=== PATIENT | male | born 1945 | race Caucasian/White ===

== ENCOUNTER 2021-05-07 20:47 | Emergency (ER) | payer OTHER ==
[2021-05-07 21:02] VITALS: TEMP 98.2; BMI 29.5
[2021-05-07 22:11] VITALS: BP 117/73; PULSE 77
== END 2021-05-07 22:22 | disposition short-term general hospital (02) ==
LOC: JER 20:47
PROC: 3E033GC Introduction of Other Therapeutic Substance into Peripheral Vein, Percutaneous Approach (ICD-10-PCS; principal; 2021-05-07)
DX: I21.3 ST elevation (STEMI) myocardial infarction of unspecified site (principal)
CPT/HCPCS: 36415; 71045-TC-FY; 80053; 82550; 83735; 84100; 84484; 85025; 85610; 85730; 93005; 93010; 99291; C9803; J1644; U0003; U0005

== ENCOUNTER 2022-11-26 06:54 | Day surgery (SDC) | payer OTHER ==
[2022-11-21 12:05] VITALS: BMI 28.5
[2022-11-26] MEDS: CELECOXIB 200 MG CAPSULE PO ONE ×2 (08:00→17:23)
[2022-11-26] MEDS ORDERED: VANCOMYCIN 1,000 MG VIAL (RESTRICTED TO ID ONLY) ONE (08:48)
[2022-11-26] MEDS ORDERED: ceFAZolin SODIUM 1 GM VIAL ONE ×2 (08:48→10:19)
[2022-11-26] MEDS ORDERED: CEFAZOLIN 2 GM in DEXTROSE 5%-WATER - 50 ML IVPB ONE (09:00)
[2022-11-26] MEDS ORDERED: BUPIVACAINE LIPOSOME/PF (EXPAREL) 266 MG/20 ML VIAL ONE (09:00)
[2022-11-26] MEDS ORDERED: FENTANYL CITRATE/PF 50 MCG/ML VIAL ONE (09:00)
[2022-11-26] MEDS ORDERED: BUPIVACAINE HCL/PF 0.5% (5MG/ML) 10 ML VIAL ONE (09:01)
[2022-11-26] MEDS ORDERED: MIDAZOLAM HCL 2 MG/2 ML SINGLE DOSE VIAL ONE (09:01)
[2022-11-26] MEDS ORDERED: ACETAMINOPHEN 1000 MG/100 ML BAG IVPB ONE (09:55)
[2022-11-26] MEDS ORDERED: ONDANSETRON 4 MG/2 ML VIAL IVPUSH PRN (09:55)
[2022-11-26] MEDS ORDERED: TRANEXAMIC ACID 1000 MG/10 ML VIAL IVPUSH ONE (10:00)
[2022-11-26] MEDS ORDERED: LACTATED RINGERS SOLUTION 1,000 ML IV SCH (10:15)
[2022-11-26] MEDS ORDERED: DEXAMETHASONE SOD PHOSPHATE 4 MG/1 ML VIAL ONE (10:19)
[2022-11-26] MEDS ORDERED: ONDANSETRON 4 MG/2 ML VIAL ONE (10:19)
[2022-11-26] MEDS ORDERED: SUCCINYLCHOLINE CHLORIDE 200 MG/10 ML SYRINGE ONE (10:23)
[2022-11-26] MEDS ORDERED: PROPOFOL 20 ML ONE (10:23)
[2022-11-26] MEDS ORDERED: PHENYLEPHRINE HCL 10 MG/1 ML SINGLE DOSE VIAL ONE (10:29)
[2022-11-26] MEDS ORDERED: VANCOMYCIN 1,000 MG VIAL (RESTRICTED TO ID ONLY) IVPB ONE (11:45)
[2022-11-26] MEDS ORDERED: ACETAMINOPHEN INJECTION 100 ML IVPB ONE (12:33)
[2022-11-26] MEDS ORDERED: KETOROLAC TROMETHAMINE 30 MG/1 ML VIAL ONE (13:32)
[2022-11-26] MEDS: KETOROLAC TROMETHAMINE 30 MG/1 ML VIAL IVPUSH SCH ×3 (17:25→17:50)
[2022-11-26] MEDS: oxyCODONE HCL 10 MG SUSTAINED ACTING TABLET PO SCH ×2 (17:25→22:18)
[2022-11-26] MEDS: CEFAZOLIN SODIUM 2 GM in DEXTROSE 5%-WATER - 50 ML IVPB SCH (17:48)
[2022-11-26] MEDS: ACETAMINOPHEN 500 MG TABLET (FP) PO SCH (17:48)
[2022-11-26] MEDS: SENNOSIDES/DOCUSATE COMBO (SENNA PLUS) TABLET (UD) PO SCH (22:19)
[2022-11-26] MEDS: ATORVASTATIN CA 80 MG TABLET (FP) PO SCH (22:19)
[2022-11-27] MEDS: ACETAMINOPHEN 500 MG TABLET (FP) PO SCH ×4 (00:41→18:35)
[2022-11-27] MEDS: CEFAZOLIN SODIUM 2 GM in DEXTROSE 5%-WATER - 50 ML IVPB SCH (01:45)
[2022-11-27] MEDS: LEVOTHYROXINE NA 75 MCG TABLET (FP) PO SCH (06:24)
[2022-11-27] MEDS: oxyCODONE HCL 5 MG TABLET PO PRN ×3 (06:25→18:35)
[2022-11-27 08:39] LABS: HEMATOCRIT 26.5 % (35.4-49); HEMOGLOBIN 8.7 G/dL (11.7-16.9); MCH 29.5 pg (25.7-33.7); MCHC 32.9 g/dl (32.0-35.9); MEAN CELL VOLUME 89.4 fl (80-96); MEAN PLT VOLUME 8.9 fl (7.5-11.1); PLATELET COUNT 186.2 10^3/uL (134-434); RBC 2.96 10^6/uL (4.00-5.60); RDW 15.1 % (11.9-15.9); WHITE BLOOD COUNT 11.5 10^3/uL (4.0-10.8)
[2022-11-27] MEDS: SPIRONOLACTONE 25 MG TABLET PO SCH (09:04)
[2022-11-27] MEDS: ASPIRIN 81 MG CHEWABLE TABLETS PO SCH (09:04)
[2022-11-27] MEDS: PANTOPRAZOLE 40 MG TABLET PO SCH (09:05)
[2022-11-27] MEDS: TICAGRELOR 90 MG TABLET PO SCH (09:05)
[2022-11-27] MEDS: oxyCODONE HCL 10 MG SUSTAINED ACTING TABLET PO SCH ×2 (09:05→21:22)
[2022-11-27] MEDS: MULTIVITAMINS (DAILY MVI) TABLET (FP) PO SCH (09:06)
[2022-11-27] MEDS: SENNOSIDES/DOCUSATE COMBO (SENNA PLUS) TABLET (UD) PO SCH ×2 (09:07→21:23)
[2022-11-27] MEDS ORDERED: SACUBITRIL/VALSARTAN 24 MG-26 MG TABLET PO SCH ×4 (10:00→22:00)
[2022-11-27] MEDS: ATORVASTATIN CA 80 MG TABLET (FP) PO SCH (21:23)
[2022-11-27 22:07] VITALS: RESP 18
[2022-11-28] MEDS: ACETAMINOPHEN 500 MG TABLET (FP) PO SCH ×3 (01:45→12:18)
[2022-11-28] MEDS: oxyCODONE HCL 5 MG TABLET PO PRN (06:17)
[2022-11-28] MEDS: LEVOTHYROXINE NA 75 MCG TABLET (FP) PO SCH (06:17)
[2022-11-28 08:44] LABS: HEMATOCRIT 25.3 % (35.4-49); HEMOGLOBIN 8.6 G/dL (11.7-16.9); MCH 30.4 pg (25.7-33.7); MEAN CELL VOLUME 89.3 fl (80-96); RBC 2.83 10^6/uL (4.00-5.60)
[2022-11-28 08:45] LABS: MEAN PLT VOLUME 8.8 fl (7.5-11.1); PLATELET COUNT 176.1 10^3/uL (134-434); RDW 15.2 % (11.9-15.9)
[2022-11-28 09:08] LABS: ALBUMIN 3.1 g/dl (3.4-5.0); BILIRUBIN,TOTAL 0.4 mg/dl (0.2-1); BLOOD UREA NITROGEN 31.9 mg/dl (7-18); CALCIUM 8.7 mg/dl (8.5-10.1); MAGNESIUM 1.8 mg/dL (1.8-2.4); SGOT/AST 21.1 U/L (15-37); SGPT/ALT 16.1 U/L (7-52); TOT PROT 5.3 g/dl (6.4-8.2)
[2022-11-28] MEDS: PANTOPRAZOLE 40 MG TABLET PO SCH (09:30)
[2022-11-28] MEDS: MULTIVITAMINS (DAILY MVI) TABLET (FP) PO SCH (09:30)
[2022-11-28] MEDS: ASPIRIN 81 MG CHEWABLE TABLETS PO SCH (09:30)
[2022-11-28] MEDS: oxyCODONE HCL 10 MG SUSTAINED ACTING TABLET PO SCH (09:30)
[2022-11-28] MEDS: SENNOSIDES/DOCUSATE COMBO (SENNA PLUS) TABLET (UD) PO SCH (09:31)
[2022-11-28] MEDS: TICAGRELOR 90 MG TABLET PO SCH (09:31)
[2022-11-28] MEDS: SPIRONOLACTONE 25 MG TABLET PO SCH ×2 (09:50→09:51)
[2022-11-28] MEDS ORDERED: SACUBITRIL/VALSARTAN 24 MG-26 MG TABLET PO SCH (10:00)
[2022-11-28 14:16] VITALS: BP 101/68; PULSE 64; TEMP 97.9
== END 2022-11-28 14:30 | disposition home health service (06) ==
LOC: FASUSAT 06:54 → EDSTATUS 08:00 → FM/S 14:17 → FASUSAT 11-28 14:30
PROVIDERS: ATTEND Orthopaedic Surgery
PROC: 8E0Y0CZ Robotic Assisted Procedure of Lower Extremity, Open Approach (ICD-10-PCS; 2022-11-26)
PROC: 0SRC0J9 Replacement of Right Knee Joint with Synthetic Substitute, Cemented, Open Approach (ICD-10-PCS; principal; 2022-11-26 10:28)
DX: M17.11 Unilateral primary osteoarthritis, right knee (principal); I11.0 Hypertensive heart disease with heart failure; I50.9 Heart failure, unspecified; E03.9 Hypothyroidism, unspecified
CPT/HCPCS: 20985; 27447; C1776; S2900; 36415; 73560-TC-RT-FY; 80053; 83735; 85027; 94760; 97010-GP; 97116-GP; 97162-GP; C1713; C1769; C1889

== ENCOUNTER → 2023-12-02 | Day surgery (SDC) | payer OTHER | END | disposition home or self-care (01) | LOC: JRADIR 10:58 | PROVIDERS: ATTEND Family Medicine | PROC: 07D23ZX Extraction of Left Neck Lymphatic, Percutaneous Approach, Diagnostic (ICD-10-PCS; principal; 2023-12-02) | DX: C76.0 Malignant neoplasm of head, face and neck (principal) | CPT/HCPCS: 38505; 76942-TC; 76998-TC; 87899; 88305-TC; 88341-TC; 88342-TC ==

== ENCOUNTER 2024-03-03 03:46 | Inpatient (IN) | payer OTHER ==
[2024-03-03] MEDS ORDERED: PROPOFOL 20 ML ONE ×2 (10:16→11:13)
[2024-03-03] MEDS ORDERED: MIDAZOLAM HCL 2 MG/2 ML SINGLE DOSE VIAL ONE (10:17)
[2024-03-03] MEDS ORDERED: SUCCINYLCHOLINE CHLORIDE 200 MG/10 ML SYRINGE ONE (10:17)
[2024-03-03] MEDS ORDERED: BUPIVACAINE HCL/PF 0.5% (5MG/ML) 10 ML VIAL ONE (10:24)
[2024-03-03] MEDS ORDERED: LIDOCAINE 1%/EPI 1:100000 (20 ML MULTI DOSE VIAL) ONE ×2 (10:24→11:43)
[2024-03-03] MEDS ORDERED: ONDANSETRON 4 MG/2 ML VIAL IVPUSH PRN (10:56)
[2024-03-03] MEDS: ceFAZolin SODIUM 1 GM VIAL IVPB ONE (11:20)
[2024-03-03] MEDS: LIDOCAINE 1%/EPI 1:100000 (50 ML MULTI DOSE VIAL) NR ONE (11:49)
[2024-03-03] MEDS: BUPIVACAINE HCL/PF 0.5% (5 MG/ML) 30 ML VIAL IJ ONE ×2 (11:49→12:05)
[2024-03-03] MEDS ORDERED: SUGAMMADEX SODIUM 200 MG/2 ML VIAL ONE (14:18)
[2024-03-03] MEDS ORDERED: oxyCODONE HCL 5 MG TABLET PO PRN (15:16)
[2024-03-03] MEDS: ACETAMINOPHEN 1000 MG/100 ML BAG IVPB SCH (16:07)
[2024-03-03] MEDS: ACETAMINOPHEN INJECTION 100 ML ONE (16:07)
[2024-03-03] MEDS: LACTATED RINGERS SOLUTION 1,000 ML IV SCH (18:01)
[2024-03-03 18:23] VITALS: BMI 30.5
[2024-03-03] MEDS: oxyCODONE HCL 5 MG TABLET PO PRN (18:55)
[2024-03-03] MEDS: DOCUSATE SODIUM 100 MG CAPSULE (FP) PO SCH (21:16)
[2024-03-03] MEDS: ATORVASTATIN CA 80 MG TABLET (FP) PO SCH (21:16)
[2024-03-04] MEDS: LEVOTHYROXINE NA 75 MCG TABLET (FP) PO SCH (06:42)
[2024-03-04 07:27] LABS: BASO % 0.1 % (0-2.0); HEMATOCRIT 32.1 % (35.4-49); HEMOGLOBIN 10.4 GM/dL (11.7-16.9); LYMPH % 7.1 % (8-40); MCH 28.2 pg (25.7-33.7); MCHC 32.5 g/dl (32.0-35.9); MEAN CELL VOLUME 86.8 fl (80-96); MEAN PLT VOLUME 7.7 fl (7.5-11.1); MONO % 5.4 % (3.8-10.2); NEUT % 87.4 % (42.8-82.8); PLATELET COUNT 180 10^3/uL (134-434); RBC 3.69 M/mm3 (4.00-5.60); RDW 16.1 % (11.9-15.9); WHITE BLOOD COUNT 13.2 K/mm3 (4.0-10.0)
[2024-03-04 07:45] LABS: POTASSIUM 4.7 mmol/L (3.5-5.1)
[2024-03-04 07:57] LABS: BLOOD UREA NITROGEN 16.9 mg/dL (7-18); CALCIUM 8.8 mg/dL (8.5-10.1)
[2024-03-04 07:58] LABS: MAGNESIUM 1.8 mg/dL (1.8-2.4)
[2024-03-04] MEDS ORDERED: TICAGRELOR 90 MG TABLET PO SCH (10:00)
[2024-03-04] MEDS: SACUBITRIL/VALSARTAN 24 MG-26 MG TABLET PO SCH ×2 (11:17→21:26)
[2024-03-04] MEDS: CYANOCOBALAMIN 1,000 MCG TABLET (FP) PO SCH (11:17)
[2024-03-04] MEDS: SPIRONOLACTONE 25 MG TABLET PO SCH (11:17)
[2024-03-04] MEDS: ASCORBIC ACID 500 MG TABLET (FP) PO SCH (11:28)
[2024-03-04] MEDS: ASPIRIN 81 MG CHEWABLE TABLETS PO SCH (14:36)
[2024-03-04] MEDS ORDERED: oxyCODONE HCL 5 MG TABLET PO PRN (20:33)
[2024-03-04] MEDS: DOCUSATE SODIUM 100 MG CAPSULE (FP) PO SCH (21:26)
[2024-03-04] MEDS: ATORVASTATIN CA 80 MG TABLET (FP) PO SCH (21:26)
[2024-03-04] MEDS: LACTATED RINGERS SOLUTION 1,000 ML IV SCH (21:27)
[2024-03-05] MEDS: oxyCODONE HCL 5 MG TABLET PO PRN (01:40)
[2024-03-05] MEDS: LEVOTHYROXINE NA 75 MCG TABLET (FP) PO SCH (06:41)
[2024-03-05] MEDS: SPIRONOLACTONE 25 MG TABLET PO SCH (09:42)
[2024-03-05] MEDS: ASPIRIN 81 MG CHEWABLE TABLETS PO SCH (09:42)
[2024-03-05] MEDS: CYANOCOBALAMIN 1,000 MCG TABLET (FP) PO SCH (09:42)
[2024-03-05] MEDS: ASCORBIC ACID 500 MG TABLET (FP) PO SCH (09:43)
[2024-03-05 09:54] LABS: BASO % 0.8 % (0-2.0); EOS % 1.6 % (0-4.5); HEMATOCRIT 34.8 % (35.4-49); HEMOGLOBIN 11.7 GM/dL (11.7-16.9); LYMPH % 21.1 % (8-40); MCHC 33.5 g/dl (32.0-35.9); MEAN CELL VOLUME 86.4 fl (80-96); MEAN PLT VOLUME 7.5 fl (7.5-11.1); MONO % 10.6 % (3.8-10.2); NEUT % 65.9 % (42.8-82.8); PLATELET COUNT 211 10^3/uL (134-434); RBC 4.03 M/mm3 (4.00-5.60); RDW 16.8 % (11.9-15.9); WHITE BLOOD COUNT 9.3 K/mm3 (4.0-10.0)
[2024-03-05 10:07] LABS: POTASSIUM 4.1 mmol/L (3.5-5.1)
[2024-03-05 10:10] LABS: BLOOD UREA NITROGEN 17.4 mg/dL (7-18); CALCIUM 9.4 mg/dL (8.5-10.1); MAGNESIUM 1.9 mg/dL (1.8-2.4)
[2024-03-05 10:14] LABS: PHOSPHOROUS 2.5 mg/dL (2.5-4.9)
[2024-03-05 10:15] LABS: BILIRUBIN,TOTAL 0.6 mg/dL (0.2-1); TOT PROT 6.1 g/dl (6.4-8.2)
[2024-03-05] MEDS: TICAGRELOR 90 MG TABLET PO SCH (15:15)
[2024-03-05] MEDS: TICAGRELOR 60 MG TABLET PO SCH (21:31)
[2024-03-08 02:34] VITALS: RESP 18
[2024-03-09 16:28] VITALS: BP 114/67; PULSE 78; TEMP 98.6
== END 2024-03-09 14:39 | disposition home health service (06) | DRG 141 ==
LOC: JASU-SURG 03:46 → J2C 15:16 → JICU 17:28 → J7W 03-04 20:21
PROVIDERS: ADMIT Family Medicine; ATTEND Family Medicine
PROC: 07T20ZZ Resection of Left Neck Lymphatic, Open Approach (ICD-10-PCS; principal; 2024-03-03 10:00)
PROC: 0CB Mouth and Throat, Excision (ICD-10-PCS; 2024-03-03 10:00)
DX: C76.0 Malignant neoplasm of head, face and neck (principal); I50.22 Chronic systolic (congestive) heart failure; I25.10 Atherosclerotic heart disease of native coronary artery without angina pectoris; E03.9 Hypothyroidism, unspecified; I10 Essential (primary) hypertension; E78.5 Hyperlipidemia, unspecified; I11.0 Hypertensive heart disease with heart failure
CPT/HCPCS: 36415; 80048; 80053; 83735; 84100; 85025; 86850; 86900; 86901; 88305-TC; 88307-TC; 88341-TC; 88342-TC; 94760; 97116-GP; 97162-GP; J0131